=== PATIENT | female | born 1935 | race Caucasian/White ===

== ENCOUNTER 2020-12-17 08:12 | Outpatient (CLI) | payer MEDICARE | END 2020-12-17 08:13 | disposition home or self-care (01) | LOC: CSHULT 08:12 | PROVIDERS: ATTEND Internal Medicine Gastroenterology | DX: R10.13 Epigastric pain (principal); C18.9 Malignant neoplasm of colon, unspecified; D12.6 Benign neoplasm of colon, unspecified; R73.03 Prediabetes; I25.10 Atherosclerotic heart disease of native coronary artery without angina pectoris; K59.00 Constipation, unspecified; K80.20 Calculus of gallbladder without cholecystitis without obstruction | CPT/HCPCS: 76705 ==

== ENCOUNTER 2021-08-29 12:19 | Outpatient (CLI) | payer MEDICARE | END 2021-08-29 12:20 | disposition home or self-care (01) | LOC: CSHMRI 12:19 | PROVIDERS: ATTEND Surgery | DX: R20.0 Anesthesia of skin (principal); M47.812 Spondylosis without myelopathy or radiculopathy, cervical region | CPT/HCPCS: 72050; 72141 ==

== ENCOUNTER 2022-04-02 13:00 | Inpatient (IN) | payer MEDICARE ==
[2022-04-02] MEDS ORDERED: Heparin 25,000 units/D5W 0 ML ONE (13:18)
[2022-04-02 13:22] LABS: #Eosinphils 0.1 10x3/uL (0.0-0.5); #Monocytes 0.1 10x3/uL (0.0-1.1); #Neutrophils 6.4 10x3/uL (1.5-8.4); %Basophils 0.1 % (0.0-2.0); %Monocytes 0.7 % (0.0-10.0); %Neutrophils 93.6 % (40.0-75.0); Hemoglobin 12.3 g/dL (12.0-15.5); Mean Corpuscular HGB CONC 34.6 g/dL (32.0-36.0); Mean Corpuscular Hemoglobin 30.1 pg (27.0-33.0); Mean Platelet Volume 9.8 fl (7.4-10.4); Platelet Count 218 10x3/uL (150-450); RBC Distribution Width 14.2 % (11.5-14.5); Red Blood Cell (RBC) Count 4.08 10x6/uL (3.90-5.03); White Blood Cell (WBC) Count 6.8 10x3/uL (3.5-10.5)
[2022-04-02] MEDS ORDERED: Heparin 10,000 UNITS/ 10 ML VIAL ONE ×3 (13:28→13:29)
[2022-04-02] MEDS ORDERED: Nitroglycerin 50 MG/250 ML BOT 0 ML ONE (13:28)
[2022-04-02] MEDS ORDERED: Adenosine 6 MG/2 ML VIAL ONE (13:30)
[2022-04-02 13:35] LABS: ALT (SGPT) 17 U/L (8-55); AST (SGOT) 17 U/L (5-34); Albumin 3.9 g/dL (3.4-4.8); Alkaline Phosphatase 106 U/L (40-110); Anion Gap 20 mmol/L (10-20); BUN (Urea Nitrogen) 10 mg/dL (9.8-20.1); Bilirubin, Total 1.1 mg/dL (0.2-1.2); Calc. Creatinine Clearance 0 mL/min (70-130); Calcium 8.9 mg/dL (7.8-10.44); Carbon Dioxide 18 mmol/L (23-31); Chloride 91 mmol/L (98-107); Estimated GFR 77; Globulin 3.2 g/dL (2.4-3.5); Glucose 148 mg/dL (83-110); Lipase 11 U/L (8-78); Potassium 4.1 mmol/L (3.5-5.1); Protein, Total 7.1 g/dL (5.8-8.1); Sodium 125 mmol/L (136-145)
[2022-04-02 13:40] LABS: PTT 23.4 sec (22.0-33.0); Prothrombin Time 11.3 sec (9.5-12.1)
[2022-04-02] MEDS ORDERED: Midazolam HCl 2 mg/2 ml Vial ONE (14:01)
[2022-04-02 14:14] LABS: SARS-CoV-2 NAA Rapid Test Not Detected (NotDetected)
[2022-04-02] MEDS ORDERED: Ondansetron PF 4 MG/2 ML Vial ONE ×2 (14:47→15:16)
[2022-04-02] MEDS ORDERED: Aspirin Chewable 81 MG TAB ONE (15:00)
[2022-04-02] MEDS ORDERED: Metoprolol Tartrate 5 MG/5 ML VIAL ONE (15:00)
[2022-04-02] MEDS ORDERED: Morphine 4 MG/ML VIAL ONE (15:16)
[2022-04-02 16:08] LABS: Bilirubin Neg (Negative); Blood, Urine 250 (Negative); Clarity Cloudy (Clear); Glucose, Urine (Dipstick) Normal (Negative); Ketone, Urine Negative (Negative); Leukocyte 500 (Negative); Nitrite Negative (Negative); Protein, Urine (Dipstick) 100 mg/dl (Neg-Trace); Urobilinogen Normal mg/dL (Less than 2)
[2022-04-02] MEDS ORDERED: cefTRIAXone\\ROCEPHIN 1 GM VIAL ONE (16:11)
[2022-04-02 16:18] LABS: Bacteria/HPF 4+ HPF (None Seen); RBC/HPF 0-3 HPF (0-3); Squamous Epithelial 0-3 HPF (0-3)
[2022-04-02] MEDS ORDERED: Ondansetron PF 4 MG/2 ML Vial IVP PRN (17:45)
[2022-04-02] MEDS ORDERED: Acetaminophen 325 MG TAB PO PRN (17:45)
[2022-04-02] MEDS ORDERED: Acetaminophen 650 MG Suppository PR PRN (17:45)
[2022-04-02] MEDS ORDERED: Ondansetron ODT 4 MG TAB PO PRN (17:45)
[2022-04-02] MEDS ORDERED: Loratadine 10 MG TAB PO PRN (17:50)
[2022-04-02] MEDS ORDERED: Sodium Chloride 0.65% Nasal 44 ML BOT EA NARE PRN (17:51)
[2022-04-02 19:40] VITALS: BMI 31.7
[2022-04-02 20:06] LABS: Anion Gap 14 mmol/L (10-20); BUN (Urea Nitrogen) 10 mg/dL (9.8-20.1); Calc. Creatinine Clearance 63 mL/min (70-130); Calcium 8.5 mg/dL (7.8-10.44); Carbon Dioxide 22 mmol/L (23-31); Chloride 92 mmol/L (98-107); Estimated GFR 74; Glucose 158 mg/dL (83-110); Potassium 3.8 mmol/L (3.5-5.1); Sodium 124 mmol/L (136-145)
[2022-04-02] MEDS ORDERED: CETIRIZINE HCL 10 MG PO PRN (20:37)
[2022-04-02 22:38] LABS: Sodium 123 mmol/L (136-145)
[2022-04-03] MEDS: Gabapentin 300 MG CAP PO SCH ×4 (01:54→21:07)
[2022-04-03 04:08] LABS: Anion Gap 12 mmol/L (10-20); BUN (Urea Nitrogen) 11 mg/dL (9.8-20.1); Calc. Creatinine Clearance 69 mL/min (70-130); Calcium 8.2 mg/dL (7.8-10.44); Carbon Dioxide 23 mmol/L (23-31); Chloride 95 mmol/L (98-107); Estimated GFR 82; Glucose 124 mg/dL (83-110); Potassium 4.1 mmol/L (3.5-5.1); Sodium 126 mmol/L (136-145)
[2022-04-03 04:10] LABS: #Eosinphils 0.3 10x3/uL (0.0-0.5); #Monocytes 1.2 10x3/uL (0.0-1.1); #Neutrophils 12.4 10x3/uL (1.5-8.4); %Basophils 0.2 % (0.0-2.0); %Lymphocytes 5.5 % (18.0-47.0); %Monocytes 7.9 % (0.0-10.0); %Neutrophils 83.7 % (40.0-75.0); Hemoglobin 10.4 g/dL (12.0-15.5); Mean Corpuscular HGB CONC 34.4 g/dL (32.0-36.0); Mean Corpuscular Hemoglobin 30.1 pg (27.0-33.0); Mean Corpuscular Volume 87.5 fl (81.6-98.3); Mean Platelet Volume 9.9 fl (7.4-10.4); Platelet Count 190 10x3/uL (150-450); RBC Distribution Width 14.7 % (11.5-14.5); Red Blood Cell (RBC) Count 3.45 10x6/uL (3.90-5.03); White Blood Cell (WBC) Count 14.8 10x3/uL (3.5-10.5)
[2022-04-03] MEDS ORDERED: Potassium Chloride 10 MEQ TAB PO PRN (08:14)
[2022-04-03] MEDS ORDERED: Furosemide 20 MG TAB PO PRN (08:14)
[2022-04-03] MEDS: Fluticasone Propionate Nasal Spray 16 gm Bottle NASAL SCH (08:39)
[2022-04-03] MEDS: Lisinopril 10 MG TAB PO SCH (08:40)
[2022-04-03] MEDS: Aspirin 81 mg Enteric Coated Tablet PO SCH (08:40)
[2022-04-03 09:45] LABS: Sodium 123 mmol/L (136-145)
[2022-04-03 13:17] LABS: Sodium, Urine Less than 20 mmol/L (Not Available); Urea Nitrogen, Random Urine 354 mg/dl
[2022-04-03] MEDS: cefTRIAXone\\ROCEPHIN 1 GM in Sodium Chloride 0.9% 100 ML IVPB SCH (15:13)
[2022-04-03 15:20] LABS: Sodium 126 mmol/L (136-145)
[2022-04-03] MEDS ORDERED: Atorvastatin Calcium 40 MG TAB PO SCH (21:00)
[2022-04-03 21:19] LABS: Sodium 126 mmol/L (136-145)
[2022-04-04 04:32] LABS: #Basophils 0.1 10x3/uL (0.0-0.2); #Eosinphils 0.6 10x3/uL (0.0-0.5); #Neutrophils 7.6 10x3/uL (1.5-8.4); %Basophils 0.5 % (0.0-2.0); %Eosinophils 5.9 % (0.0-6.0); %Lymphocytes 8.5 % (18.0-47.0); %Monocytes 10.2 % (0.0-10.0); %Neutrophils 74.4 % (40.0-75.0); Hemoglobin 10.2 g/dL (12.0-15.5); Mean Corpuscular HGB CONC 34.7 g/dL (32.0-36.0); Mean Corpuscular Hemoglobin 30.4 pg (27.0-33.0); Mean Corpuscular Volume 87.8 fl (81.6-98.3); Mean Platelet Volume 10.3 fl (7.4-10.4); Platelet Count 187 10x3/uL (150-450); RBC Distribution Width 14.6 % (11.5-14.5); Red Blood Cell (RBC) Count 3.35 10x6/uL (3.90-5.03); White Blood Cell (WBC) Count 10.2 10x3/uL (3.5-10.5)
[2022-04-04 04:40] LABS: Anion Gap 10 mmol/L (10-20); BUN (Urea Nitrogen) 14 mg/dL (9.8-20.1); Calc. Creatinine Clearance 63 mL/min (70-130); Carbon Dioxide 25 mmol/L (23-31); Chloride 98 mmol/L (98-107); Estimated GFR 74; Glucose 120 mg/dL (83-110); Potassium 4.2 mmol/L (3.5-5.1); Sodium 129 mmol/L (136-145)
[2022-04-04] MEDS: Gabapentin 300 MG CAP PO SCH ×4 (05:00→20:15)
[2022-04-04] MEDS: Aspirin 81 mg Enteric Coated Tablet PO SCH (08:21)
[2022-04-04] MEDS: Lisinopril 10 MG TAB PO SCH (08:21)
[2022-04-04] MEDS: Fluticasone Propionate Nasal Spray 16 gm Bottle NASAL SCH (08:22)
[2022-04-04] MEDS: cefTRIAXone\\ROCEPHIN 1 GM in Sodium Chloride 0.9% 100 ML IVPB SCH (15:03)
[2022-04-04] MEDS: Silver Sulfadiazine 50 GM TUBE TOP SCH (20:38)
[2022-04-05] MEDS: Gabapentin 300 MG CAP PO SCH ×3 (03:05→21:28)
[2022-04-05 04:34] LABS: #Basophils 0.1 10x3/uL (0.0-0.2); #Eosinphils 0.4 10x3/uL (0.0-0.5); #Monocytes 0.8 10x3/uL (0.0-1.1); #Neutrophils 5.7 10x3/uL (1.5-8.4); %Basophils 0.8 % (0.0-2.0); %Eosinophils 5.6 % (0.0-6.0); %Lymphocytes 8.9 % (18.0-47.0); %Monocytes 9.9 % (0.0-10.0); %Neutrophils 74.2 % (40.0-75.0); Hemoglobin 10.2 g/dL (12.0-15.5); Mean Corpuscular HGB CONC 33.4 g/dL (32.0-36.0); Mean Corpuscular Volume 89.7 fl (81.6-98.3); Mean Platelet Volume 10.3 fl (7.4-10.4); Platelet Count 193 10x3/uL (150-450); RBC Distribution Width 14.6 % (11.5-14.5); White Blood Cell (WBC) Count 7.7 10x3/uL (3.5-10.5)
[2022-04-05 04:44] LABS: Anion Gap 12 mmol/L (10-20); BUN (Urea Nitrogen) 12 mg/dL (9.8-20.1); Calc. Creatinine Clearance 68 mL/min (70-130); Calcium 8.3 mg/dL (7.8-10.44); Carbon Dioxide 23 mmol/L (23-31); Chloride 101 mmol/L (98-107); Estimated GFR 81; Glucose 133 mg/dL (83-110); Potassium 4.1 mmol/L (3.5-5.1); Sodium 132 mmol/L (136-145)
[2022-04-05] MEDS: Fluticasone Propionate Nasal Spray 16 gm Bottle NASAL SCH (09:39)
[2022-04-05] MEDS: Silver Sulfadiazine 50 GM TUBE TOP SCH (09:39)
[2022-04-05] MEDS: Lisinopril 10 MG TAB PO SCH (09:39)
[2022-04-05] MEDS: Aspirin 81 mg Enteric Coated Tablet PO SCH (09:39)
[2022-04-05 12:11] VITALS: BP 141/72; TEMP 99.2
== END 2022-04-05 15:25 | disposition home or self-care (01) | DRG 699 ==
LOC: CSHERS 13:00 → CSHTELE 19:10
PROVIDERS: ADMIT Internal Medicine; ATTEND Internal Medicine
PROC: 4A023N7 Measurement of Cardiac Sampling and Pressure, Left Heart, Percutaneous Approach (ICD-10-PCS; principal; 2022-04-02)
PROC: B2111ZZ Fluoroscopy of Multiple Coronary Arteries using Low Osmolar Contrast (ICD-10-PCS; 2022-04-02)
PROC: B2151ZZ Fluoroscopy of Left Heart using Low Osmolar Contrast (ICD-10-PCS; 2022-04-02)
PROC: 0T9B70Z Drainage of Bladder with Drainage Device, Via Natural or Artificial Opening (ICD-10-PCS; 2022-04-02)
DX: N32.0 Bladder-neck obstruction (principal); I51.81 Takotsubo syndrome; N39.0 Urinary tract infection, site not specified; E87.1 Hypo-osmolality and hyponatremia; I25.10 Atherosclerotic heart disease of native coronary artery without angina pectoris; I10 Essential (primary) hypertension; Z20.822 Contact with and (suspected) exposure to COVID-19; E78.5 Hyperlipidemia, unspecified; N13.9 Obstructive and reflux uropathy, unspecified; Z79.82 Long term (current) use of aspirin; Z79.899 Other long term (current) drug therapy; Z85.038 Personal history of other malignant neoplasm of large intestine; Z95.5 Presence of coronary angioplasty implant and graft; Z90.710 Acquired absence of both cervix and uterus; Z88.8 Allergy status to other drugs, medicaments and biological substances
CPT/HCPCS: 36415; 51702; 71045; 74177; 80048; 80053; 81003; 81015; 82553; 83690; 83930; 83935; 84295; 84300; 84484; 84540; 84560; 85025; 85610; 85730; 86850; 86900; 86901; 87077; 87086; 87186; 93005; 93458; 94760; 96374; 96375; C1760; C1769; J0153; J0696; J1644; J2250; J2270; J2405; J3490; U0002

== ENCOUNTER 2023-05-16 09:53 | Inpatient (IN) | payer MEDICARE ==
[2023-05-16] MEDS ORDERED: Ondansetron PF 4 MG/2 ML Vial ONE (10:38)
[2023-05-16] MEDS ORDERED: Morphine 2 MG/ML VIAL ONE (10:38)
[2023-05-16 11:18] LABS: #Monocytes 0.5 10x3/uL (0.0-1.1); #Neutrophils 3.4 10x3/uL (1.5-8.4); %Basophils 0.7 % (0.0-2.0); %Eosinophils 0.9 % (0.0-6.0); %Lymphocytes 12.4 % (18.0-47.0); %Monocytes 10.2 % (0.0-10.0); %Neutrophils 75.6 % (40.0-75.0); Hematocrit 36.3 % (34.9-44.5); Hemoglobin 12.6 g/dL (12.0-15.5); Mean Corpuscular HGB CONC 34.7 g/dL (32.0-36.0); Mean Corpuscular Hemoglobin 30.8 pg (27.0-33.0); Mean Corpuscular Volume 88.8 fl (81.6-98.3); Mean Platelet Volume 9.9 fl (7.4-10.4); Platelet Count 241 10x3/uL (150-450); RBC Distribution Width 13.5 % (11.5-14.5); Red Blood Cell (RBC) Count 4.09 10x6/uL (3.90-5.03); White Blood Cell (WBC) Count 4.5 10x3/uL (3.5-10.5)
[2023-05-16 11:30] LABS: ALT (SGPT) 20 U/L (8-55); AST (SGOT) 24 U/L (5-34); Albumin 4.1 g/dL (3.4-4.8); Alkaline Phosphatase 76 U/L (40-110); Anion Gap 15 mmol/L (10-20); BUN (Urea Nitrogen) 9 mg/dL (9.8-20.1); Bilirubin, Total 0.7 mg/dL (0.2-1.2); CK (CPK) 125 U/L (29-168); Calc. Creatinine Clearance 0 mL/min (70-130); Calcium 8.9 mg/dL (7.8-10.44); Carbon Dioxide 21 mmol/L (23-31); Chloride 90 mmol/L (98-107); Estimated GFR 80; Globulin 2.7 g/dL (2.4-3.5); Glucose 121 mg/dL (83-110); Lipase 17 U/L (8-78); Potassium 4.7 mmol/L (3.5-5.1); Protein, Total 6.8 g/dL (5.8-8.1); Sodium 121 mmol/L (136-145)
[2023-05-16 11:35] LABS: Troponin I 0.013 ng/mL (< 0.028)
[2023-05-16 12:15] LABS: SARS-CoV-2 NAA Rapid Test Not Detected (NotDetected)
[2023-05-16] MEDS ORDERED: LevoFLOXacin 750 mg/D5W 150 ml Premix Bag ONE (13:05)
[2023-05-16] MEDS ORDERED: metroNIDAZOLE 500 MG/100 ML BAG ONE (13:05)
[2023-05-16] MEDS ORDERED: Iopamidol 300 61% 100 ML VIAL FS ONE (15:23)
[2023-05-16] MEDS ORDERED: Guaifenesin DM 100-10/5 ML UDCUP PO PRN (15:40)
[2023-05-16] MEDS ORDERED: Acetaminophen 650 MG Suppository PR PRN (15:40)
[2023-05-16] MEDS ORDERED: Ondansetron PF 4 MG/2 ML Vial IVP PRN (15:40)
[2023-05-16] MEDS ORDERED: Ondansetron ODT 4 MG TAB PO PRN (15:40)
[2023-05-16] MEDS ORDERED: Senokot S 8.6-50 MG TAB PO PRN (15:40)
[2023-05-16] MEDS ORDERED: Acetaminophen 325 MG TAB PO PRN (15:40)
[2023-05-16 16:23] LABS: Anion Gap 16 mmol/L (10-20); BUN (Urea Nitrogen) 7 mg/dL (9.8-20.1); Calc. Creatinine Clearance 0 mL/min (70-130); Calcium 9.2 mg/dL (7.8-10.44); Carbon Dioxide 21 mmol/L (23-31); Chloride 97 mmol/L (98-107); Estimated GFR 81; Glucose 122 mg/dL (83-110); Potassium 4.2 mmol/L (3.5-5.1); Sodium 130 mmol/L (136-145)
[2023-05-16 17:57] LABS: Bilirubin Neg (Negative); Blood, Urine 50 (Negative); Clarity Clear (Clear); Glucose, Urine (Dipstick) Normal (Negative); Ketone, Urine Negative (Negative); Leukocyte 500 (Negative); Nitrite Positive (Negative); Protein, Urine (Dipstick) Negative (Neg-Trace); Urobilinogen Normal mg/dL (Less than 2)
[2023-05-16 18:05] LABS: Bacteria/HPF 2+ HPF (None Seen); CAUTI Indications for Culture Dysuria,urgency,freq; Squamous Epithelial None Seen HPF (0-3); Transitional Epithelial 0-3 HPF (None Seen)
[2023-05-16 18:07] LABS: Urine Culture Reflex No No
[2023-05-16 22:36] VITALS: BMI 33.6
[2023-05-16] MEDS: Famotidine 20 MG TAB PO SCH (22:43)
[2023-05-16] MEDS: HYDROcodone/Acetaminophen 5/325 mg Tablet PO PRN (22:43)
[2023-05-17] MEDS: HYDROcodone/Acetaminophen 5/325 mg Tablet PO PRN ×4 (02:38→21:06)
[2023-05-17 07:08] LABS: #Monocytes 0.9 10x3/uL (0.0-1.1); #Neutrophils 5.1 10x3/uL (1.5-8.4); %Basophils 0.4 % (0.0-2.0); %Eosinophils 0.1 % (0.0-6.0); %Lymphocytes 9.8 % (18.0-47.0); %Monocytes 12.9 % (0.0-10.0); %Neutrophils 76.5 % (40.0-75.0); Hematocrit 36.3 % (34.9-44.5); Hemoglobin 12.5 g/dL (12.0-15.5); Mean Corpuscular HGB CONC 34.4 g/dL (32.0-36.0); Mean Corpuscular Hemoglobin 30.5 pg (27.0-33.0); Mean Corpuscular Volume 88.5 fl (81.6-98.3); Mean Platelet Volume 10.2 fl (7.4-10.4); Platelet Count 237 10x3/uL (150-450); RBC Distribution Width 13.6 % (11.5-14.5); White Blood Cell (WBC) Count 6.7 10x3/uL (3.5-10.5)
[2023-05-17 07:13] LABS: Anion Gap 13 mmol/L (10-20); BUN (Urea Nitrogen) 8 mg/dL (9.8-20.1); Calc. Creatinine Clearance 68 mL/min (70-130); Carbon Dioxide 19 mmol/L (23-31); Chloride 97 mmol/L (98-107); Estimated GFR 83; Glucose 124 mg/dL (83-110); Sodium 125 mmol/L (136-145)
[2023-05-17] MEDS: Famotidine 20 MG TAB PO SCH ×2 (10:15→21:05)
[2023-05-17 16:29] LABS: Sodium 126 mmol/L (136-145)
[2023-05-17] MEDS: cefTRIAXone\\ROCEPHIN 2 GM in Sodium Chloride 0.9% 100 ML IVPB SCH (16:31)
[2023-05-17 19:50] LABS: Sodium 126 mmol/L (136-145)
[2023-05-17] MEDS ORDERED: hydrALAZINE 25 MG TAB PO SCH (20:15)
[2023-05-18 00:08] LABS: Sodium 126 mmol/L (136-145)
[2023-05-18 04:28] LABS: #Eosinphils 0.1 10x3/uL (0.0-0.5); #Monocytes 0.8 10x3/uL (0.0-1.1); #Neutrophils 3.6 10x3/uL (1.5-8.4); %Basophils 0.7 % (0.0-2.0); %Eosinophils 1.4 % (0.0-6.0); %Lymphocytes 19.1 % (18.0-47.0); %Monocytes 13.9 % (0.0-10.0); %Neutrophils 64.7 % (40.0-75.0); Hematocrit 36.6 % (34.9-44.5); Hemoglobin 12.5 g/dL (12.0-15.5); Mean Corpuscular HGB CONC 34.2 g/dL (32.0-36.0); Mean Corpuscular Hemoglobin 30.3 pg (27.0-33.0); Mean Corpuscular Volume 88.8 fl (81.6-98.3); Mean Platelet Volume 9.5 fl (7.4-10.4); Platelet Count 238 10x3/uL (150-450); RBC Distribution Width 13.8 % (11.5-14.5); Red Blood Cell (RBC) Count 4.12 10x6/uL (3.90-5.03); White Blood Cell (WBC) Count 5.6 10x3/uL (3.5-10.5)
[2023-05-18 04:40] LABS: Anion Gap 12 mmol/L (10-20); BUN (Urea Nitrogen) 8 mg/dL (9.8-20.1); Calc. Creatinine Clearance 69 mL/min (70-130); Calcium 8.7 mg/dL (7.8-10.44); Carbon Dioxide 21 mmol/L (23-31); Chloride 96 mmol/L (98-107); Estimated GFR 84; Glucose 110 mg/dL (83-110); Potassium 3.6 mmol/L (3.5-5.1); Sodium 125 mmol/L (136-145)
[2023-05-18] MEDS: HYDROcodone/Acetaminophen 5/325 mg Tablet PO PRN ×2 (10:07→23:13)
[2023-05-18] MEDS: Famotidine 20 MG TAB PO SCH ×2 (10:07→20:38)
[2023-05-18 13:23] LABS: Anion Gap 13 mmol/L (10-20); BUN (Urea Nitrogen) 11 mg/dL (9.8-20.1); Calc. Creatinine Clearance 60 mL/min (70-130); Calcium 8.8 mg/dL (7.8-10.44); Carbon Dioxide 22 mmol/L (23-31); Chloride 93 mmol/L (98-107); Estimated GFR 72; Glucose 166 mg/dL (83-110); Magnesium 1.8 mg/dL (1.6-2.6); Potassium 4.2 mmol/L (3.5-5.1); Sodium 124 mmol/L (136-145)
[2023-05-18 16:04] LABS: Actual Bicarbonate (HCO3v) 22.9 mEq/L (22-28); Base Excess -1.9 mEq/L (-2 - +2); Calcium, Ionized (venous) 1.15 mmol/L (1.16-1.32); Chloride (VBG) 92 mmol/L (98-106); Hematocrit-VBG 39 % (36.0-47.0); Hemoglobin (Hb) 13.3 g/dL (11.7-16.1); Potassium (VBG) 4.36 mmol/L (3.70-5.30); Puncture Site Other Site; RapidComm Collect By CBN; Sodium 125.8 mmol/L (133-146); pH (venous) 7.386 (7.32-7.43)
[2023-05-18] MEDS: Sodium Chloride 1 GM TAB PO SCH ×2 (17:13→20:38)
[2023-05-18] MEDS: cefTRIAXone\\ROCEPHIN 2 GM in Sodium Chloride 0.9% 100 ML IVPB SCH (17:14)
[2023-05-19 04:58] LABS: #Basophils 0.1 10x3/uL (0.0-0.2); #Eosinphils 0.1 10x3/uL (0.0-0.5); #Monocytes 0.9 10x3/uL (0.0-1.1); #Neutrophils 4.4 10x3/uL (1.5-8.4); %Basophils 0.7 % (0.0-2.0); %Lymphocytes 19.6 % (18.0-47.0); %Monocytes 13.4 % (0.0-10.0); Hematocrit 36.9 % (34.9-44.5); Hemoglobin 12.7 g/dL (12.0-15.5); Mean Corpuscular HGB CONC 34.4 g/dL (32.0-36.0); Mean Corpuscular Hemoglobin 30.4 pg (27.0-33.0); Mean Corpuscular Volume 88.3 fl (81.6-98.3); Mean Platelet Volume 9.3 fl (7.4-10.4); Platelet Count 253 10x3/uL (150-450); RBC Distribution Width 13.8 % (11.5-14.5); Red Blood Cell (RBC) Count 4.18 10x6/uL (3.90-5.03); White Blood Cell (WBC) Count 6.8 10x3/uL (3.5-10.5)
[2023-05-19 05:15] LABS: Anion Gap 13 mmol/L (10-20); BUN (Urea Nitrogen) 13 mg/dL (9.8-20.1); Calc. Creatinine Clearance 63 mL/min (70-130); Carbon Dioxide 23 mmol/L (23-31); Chloride 96 mmol/L (98-107); Estimated GFR 75; Glucose 109 mg/dL (83-110); Potassium 4.2 mmol/L (3.5-5.1); Sodium 128 mmol/L (136-145)
[2023-05-19] MEDS: Sodium Chloride 1 GM TAB PO SCH (08:55)
[2023-05-19] MEDS: Famotidine 20 MG TAB PO SCH (08:55)
[2023-05-19] MEDS: HYDROcodone/Acetaminophen 5/325 mg Tablet PO PRN (09:06)
[2023-05-19 11:54] VITALS: TEMP 98.1
[2023-05-19 12:49] VITALS: BP 145/74
== END 2023-05-19 12:40 | disposition home or self-care (01) | DRG 644 ==
LOC: CSHERS 09:53 → CSHTELE 22:26
PROVIDERS: ADMIT Emergency Medicine; ATTEND Hospitalist
DX: E22.2 Syndrome of inappropriate secretion of antidiuretic hormone (principal); K57.32 Diverticulitis of large intestine without perforation or abscess without bleeding; N39.0 Urinary tract infection, site not specified; E78.5 Hyperlipidemia, unspecified; I25.10 Atherosclerotic heart disease of native coronary artery without angina pectoris; Z96.641 Presence of right artificial hip joint; Z96.653 Presence of artificial knee joint, bilateral; Z20.822 Contact with and (suspected) exposure to COVID-19; R07.89 Other chest pain; I12.9 Hypertensive chronic kidney disease with stage 1 through stage 4 chronic kidney disease, or unspecified chronic kidney disease; E11.22 Type 2 diabetes mellitus with diabetic chronic kidney disease; N18.1 Chronic kidney disease, stage 1; D63.1 Anemia in chronic kidney disease; K57.30 Diverticulosis of large intestine without perforation or abscess without bleeding; Z95.5 Presence of coronary angioplasty implant and graft; Z88.8 Allergy status to other drugs, medicaments and biological substances; Z79.899 Other long term (current) drug therapy; Z79.82 Long term (current) use of aspirin; Z79.84 Long term (current) use of oral hypoglycemic drugs; Z85.038 Personal history of other malignant neoplasm of large intestine; Z90.49 Acquired absence of other specified parts of digestive tract; Z90.711 Acquired absence of uterus with remaining cervical stump; Z98.890 Other specified postprocedural states; Z82.3 Family history of stroke
CPT/HCPCS: 36415; 70450; 71045; 74177; 80048; 80053; 81001; 82550; 82805; 83690; 83735; 83880; 83935; 84300; 84443; 84484; 85025; 87086; 93005; 94760; J0696; J1650; J1956; J2272; J2405; J3490; Q9967; U0002

== ENCOUNTER 2024-02-14 10:59 | Outpatient (CLI) | payer MEDICARE | END 2024-02-14 11:00 | disposition home or self-care (01) | LOC: CSHRAD 10:59 | PROVIDERS: ATTEND Internal Medicine | DX: M25.511 Pain in right shoulder (principal); M19.012 Primary osteoarthritis, left shoulder; M19.011 Primary osteoarthritis, right shoulder ==

== ENCOUNTER 2024-07-24 14:14 | Outpatient (CLI) | payer MEDICARE | END 2024-07-24 14:15 | disposition home or self-care (01) | LOC: CSHRAD 14:14 | PROVIDERS: ATTEND Physical Medicine & Rehabilitation | DX: M54.6 Pain in thoracic spine (principal); M47.814 Spondylosis without myelopathy or radiculopathy, thoracic region; M41.9 Scoliosis, unspecified | CPT/HCPCS: 72070 ==

== ENCOUNTER 2024-09-13 09:20 | Emergency (ER) | payer MEDICARE ==
[2024-09-13] MEDS ORDERED: Ondansetron PF 4 MG/2 ML Vial ONE (09:44)
[2024-09-13] MEDS ORDERED: Famotidine/PF 20 mg/2ml Vial ONE (09:45)
[2024-09-13] MEDS ORDERED: Sucralfate 1 GM/10 ML UDCUP ONE (09:45)
[2024-09-13 10:15] LABS: #Basophils 0.04 10x3/uL (0.0-0.2); #Eosinophils 0.12 10x3/uL (0.0-0.5); #Monocytes 0.55 10x3/uL (0.0-1.1); #Neutrophils 3.03 10x3/uL (1.5-8.4); %Basophils 0.8 % (0.0-2.0); %Eosinophils 2.5 % (0.0-6.0); %Monocytes 11.6 % (0.0-10.0); %Neutrophils 63.7 % (40.0-75.0); Hematocrit 36.7 % (34.9-44.5); Mean Corpuscular HGB CONC 32.7 g/dL (32.0-36.0); Mean Corpuscular Hemoglobin 29.7 pg (27.0-33.0); Mean Corpuscular Volume 90.8 fL (81.6-98.3); Mean Platelet Volume 9.7 fL (7.4-10.4); Platelet Count 236 10x3/uL (150-450); RBC Distribution Width 13.7 % (11.5-14.5); Red Blood Cell (RBC) Count 4.04 10x6/uL (3.90-5.03); White Blood Cell (WBC) Count 4.8 10x3/uL (3.5-10.5)
[2024-09-13 10:31] LABS: ALT (SGPT) 12 U/L (8-55); AST (SGOT) 17 U/L (5-34); Albumin 3.7 g/dL (3.4-4.8); Alkaline Phosphatase 77 U/L (40-110); Anion Gap 15 mmol/L (10-20); BUN (Urea Nitrogen) 13 mg/dL (9.8-20.1); Bilirubin, Total 0.4 mg/dL (0.2-1.2); Calc. Creatinine Clearance 0 mL/min (70-130); Calcium 9.1 mg/dL (7.8-10.44); Carbon Dioxide 23 mmol/L (23-31); Chloride 101 mmol/L (98-107); Estimated GFR 77; Glucose 99 mg/dL (83-110); Lipase 16 U/L (8-78); Potassium 4.5 mmol/L (3.5-5.1); Protein, Total 6.7 g/dL (5.8-8.1); Sodium 134 mmol/L (136-145)
[2024-09-13 10:37] LABS: Troponin I Less than 0.010 ng/mL (< 0.028)
[2024-09-13] MEDS ORDERED: hydrALAZINE 20 MG/ML VIAL ONE (11:33)
[2024-09-13] MEDS ORDERED: Iopamidol 300 61% 100 ML VIAL FS ONE (12:30)
== END 2024-09-13 12:39 | disposition home or self-care (01) ==
LOC: CSHERS 09:20
DX: R10.13 Epigastric pain (principal); R11.0 Nausea; I10 Essential (primary) hypertension
CPT/HCPCS: 71045; 74177; 80053; 83690; 84484; 85025; 93005; J0360; J2405; J3490; 96374; 96375; Q9967

== ENCOUNTER 2025-05-22 10:02 | Emergency (ER) | payer MEDICARE, OTHER ==
[2025-05-22] MEDS ORDERED: Acetaminophen 325 MG TAB ONE (12:53)
== END 2025-05-22 13:10 ==
LOC: CSHERS 10:02
DX: S00.03XA Contusion of scalp, initial encounter (principal); S16.1XXA Strain of muscle, fascia and tendon at neck level, initial encounter; I10 Essential (primary) hypertension; E78.5 Hyperlipidemia, unspecified; K21.9 Gastro-esophageal reflux disease without esophagitis; W18.2XXA Fall in (into) shower or empty bathtub, initial encounter; Y92.002 Bathroom of unspecified non-institutional (private) residence as the place of occurrence of the external cause
CPT/HCPCS: 70450; 72125